=== PATIENT | male | born 1985 | race Caucasian/White ===

== ENCOUNTER 2018-01-18 15:23 | Observation (INO) ==
[2018-01-18] MEDS ORDERED: *HR* Belladonna Alkaloids/Opium 30 MG RECTAL SUPPOSITORY RC PRN (16:31)
[2018-01-18] MEDS ORDERED: Ondansetron 4 MG/2 ML VIAL IVP PRN (16:31)
[2018-01-18] MEDS ORDERED: Naloxone 0.4 MG/ML INJ IVP PRN (16:31)
[2018-01-18] MEDS ORDERED: *HR* Promethazine 25 MG/ML VIAL IVP PRN (16:31)
--- NOTE | 2018-01-18 16:47 | Urology History & Physical ---
Date of Encounter: 01/18/18 Time of Encounter: 16:43 Assessment and Plan (1) Ureteral stone with hydronephrosis Current Visit: Yes Status: Acute I reviewed the ct report. likely 2 mm UVJ stone. active severe pain and N/V. discussed trial of passage but pain control will not allow. admission. will attempt passage tonight with IVF and pain control. N/V control. strain urine. stone extraction tomorrow if no passage. History of Present Illness Chief complaint: right flank pain. N/V HPI: Mr. Hightower is a 33 year old male 2 ER visits for severe flank pain. 2 mm UVJ stone. feels "miserable" has been taking toradol q6h. family hx of stones. no personal hx of stones. Past Med Surg Social Fam HX - Past Medical History Medical history: kidney stones, other Psychiatric history: no psych history - Social History Smoking Status: Never smoker Smokeless Tobacco Status: Yes Alcohol use: occasionally Drug use: none Medications and Allergies Ketorolac [Toradol] 10 mg PO Q6HR #10 tablet 01/18/18 [Rx] Ondansetron ODT [Zofran ODT] 4 mg PO Q8HR PRN #10 tab.rapdis 01/18/18 [Rx] Paroxetine HCl [Paxil] 10 mg PO DAILY 01/18/18 [History] Tamsulosin [Flomax] 0.4 mg PO DAILY #7 cap.er.24h 01/18/18 [Rx] 3 Allergy/AdvReac Type Severity Reaction Status Date / Time acetaminophen [From Vicodin] Allergy Palpitation Verified 01/18/18 11:07 s hydrocodone [From Vicodin] Allergy Palpitation Verified 01/18/18 11:07 s naproxen [From Aleve] Allergy Palpitation Verified 01/18/18 11:07 s Oxycodone [From Percocet] Allergy Palpitation Verified 01/18/18 11:07 s Review of Systems - Constitutional no fatigue, no fever(s), no malaise - EENT Nose, mouth and throat: no dizziness - Cardiovascular no chest pain - Respiratory no cough - Gastrointestinal abdominal pain, nausea, vomiting - Genitourinary flank pain - Musculoskeletal back pain - Integumentary no erythema - Neurological no confusion - Psychiatric no anxiety Exam - General physical appearance Present: no distress, severe pain, other (actively vomiting) - Eyes Present: PERRL, conjunctiva is clear - ENT Present: normal nares, no hearing loss - Neck Present: no masses, no lymphadenopathy - Respiratory Present: normal respiratory effort - Cardiovascular Cardiovascular exam IM: RRR - Abdomen Abdomen: Present: soft, tender, suprapubic tenderness - Integumentary Present: no rash, no abnormal pigmentation - Neurologic Present: normal coordination. Absent: disoriented, confused - Musculoskeletal Present: normal gait Urology Results - Labs All other labs normal.
[2018-01-18 17:09] LABS: Basophils % 0.1 %; Hematocrit 40.9 % (37.5-50.1); Immature Granulocytes % 0.4 % (0-4); Lymphocytes # 0.8 K/mcL (0.6-4.6); Lymphocytes % 6.8 %; Mean Corpuscular HGB Conc 34.2 g/dL (31.6-35.5); Mean Corpuscular Hemoglobin 29.3 pg (28.0-33.3); Mean Corpuscular Volume 85.6 fL (83.0-100.0); Mean Platelet Volume 9.2 fL (9.4-12.4); Monocytes # 0.6 K/mcL (0.0-1.3); Monocytes % 4.9 %; Neutrophils # 9.8 K/mcL (1.6-8.9); Platelet Count 197 K/mcL (140-400); Red Blood Count 4.78 M/mcL (4.19-5.50); Red Cell Distribution Width 12.7 % (11.5-14.5); Segmented Neutrophils % 87.8 %
[2018-01-18 17:23] LABS: BUN/Creatinine Ratio 14 (6-26); Blood Urea Nitrogen 15 mg/dL (6-20); Calcium 8.9 mg/dL (8.6-10.3); Carbon Dioxide 25 mEq/L (23-29); Chloride 107 mEq/L (98-107); Glucose 106 mg/dL (70-105); Osmolality,Calculated 287 (280-300); Potassium 4.3 mEq/L (3.5-5.1); Sodium 138 mEq/L (136-145); eGFR For African Americans > 60 (> 60); eGFR For Non-African Americans > 60 (> 60)
[2018-01-18] MEDS: 0.9 % Sodium Chloride 1,000 ML IVC SCH (18:27)
[2018-01-18] MEDS: *HR* HYDROmorphone 2 MG TABLET PO PRN (20:30)
[2018-01-19] MEDS: Ketorolac 15 MG/ML VIAL IVP SCH ×4 (00:36→18:03)
[2018-01-19] MEDS: 0.9 % Sodium Chloride 1,000 ML IVC SCH ×2 (00:36→09:38)
[2018-01-19] MEDS: *HR* HYDROmorphone 2 MG TABLET PO PRN ×3 (03:05→18:06)
--- NOTE | 2018-01-19 07:34 | Urology Progress Note ---
Date of Encounter: 01/19/18 Time of Encounter: 07:32 - Assessment and Plan (1) Ureteral stone with hydronephrosis Current Visit: Yes Status: Acute Assessment and plan: 33-year-old man with a right distal ureteral stone. Plan for right ureteroscopy , laser lithotripsy, and stent placement. He was informed of the risks of the procedure including but not limited to bleeding, infection, injury to other structures, need for further procedures, stent irritation, incomplete fragmentation, ureteral perforation, need for nephrostomy tube, need for open repair, risks unforeseen, and the risk of anesthesia. He is willing to proceed. Progress Note Narrative: 33-year-old man with a history of right flank pain. He was admitted for a distal right ureteral stone. He is still having pain this morning. He wishes to proceed with surgery today. Objective Initial Vital Signs Temp Pulse Resp BP Pulse Ox 98.4 F 64 14 97/57 100 01/18/18 20:32 01/18/18 20:32 01/18/18 20:32 01/18/18 20:32 01/18/18 20:32 - General physical appearance Present: well developed, well nourished, moderate pain - Respiratory Present: normal expansion - Abdomen Present: soft - Labs 01/18/18 16:50 01/18/18 16:50 Diabetes panel 01/18/18 Range/Units 16:50 Sodium 138 (136-145) mEq/L Potassium 4.3 (3.5-5.1) mEq/L Chloride 107 (98-107) mEq/L Carbon Dioxide 25 (23-29) mEq/L BUN 15 (6-20) mg/dL Creatinine 1.05 (0.70-1.30) mg/dL Glucose 106 H (70-105) mg/dL Calcium 8.9 (8.6-10.3) mg/dL Calcium panel 01/18/18 Range/Units 16:50 Calcium 8.9 (8.6-10.3) mg/dL Pituitary panel 01/18/18 Range/Units 16:50 Sodium 138 (136-145) mEq/L Potassium 4.3 (3.5-5.1) mEq/L Chloride 107 (98-107) mEq/L Carbon Dioxide 25 (23-29) mEq/L BUN 15 (6-20) mg/dL Creatinine 1.05 (0.70-1.30) mg/dL Glucose 106 H (70-105) mg/dL Calcium 8.9 (8.6-10.3) mg/dL Adrenal panel 01/18/18 Range/Units 16:50 Sodium 138 (136-145) mEq/L Potassium 4.3 (3.5-5.1) mEq/L Chloride 107 (98-107) mEq/L Carbon Dioxide 25 (23-29) mEq/L BUN 15 (6-20) mg/dL Creatinine 1.05 (0.70-1.30) mg/dL Glucose 106 H (70-105) mg/dL Calcium 8.9 (8.6-10.3) mg/dL Consult Discharge Plan - Plan Referrals: Zulma Nayak CNP [Primary Care Provider] - Lucian Moulton MD [Partnered Physician] -
[2018-01-19] MEDS ORDERED: cefTRIAXone 1,000 MG in Water for inj. (sterile) 20 ML 10 ML IVP SCH (09:00)
[2018-01-19] MEDS ORDERED: Isovue-300 50 ML VIAL IVP ONE (16:47)
[2018-01-19] MEDS ORDERED: *HR* FentaNYL (PF) 100 MCG/2 ML VIAL ONE (16:50)
[2018-01-19] MEDS ORDERED: Dexamethasone 4 MG/ML VIAL ONE (16:50)
[2018-01-19] MEDS ORDERED: *HR* Propofol 200 MG/20 ML VIAL IVP ONE (16:50)
[2018-01-19] MEDS ORDERED: Ondansetron 4 MG/2 ML VIAL ONE (16:50)
[2018-01-19] MEDS ORDERED: Lidocaine -MPF 2% 2 ML VIAL ONE (16:50)
[2018-01-19] MEDS ORDERED: *HR* Midazolam HCl 2 MG/2 ML VIAL ONE (16:52)
--- NOTE | 2018-01-19 16:55 | Anesthesia Evaluation PreOp ---
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 HX Other Medical History: Renal (stones) Anesthesia History: No Prior Anesthetic Complications Alcohol Use: occasionally Drug use: none Medications and Allergies Ketorolac [Toradol] 10 mg PO Q6HR #10 tablet 01/18/18 [Rx] Ondansetron ODT [Zofran ODT] 4 mg PO Q8HR PRN #10 tab.rapdis 01/18/18 [Rx] Paroxetine HCl [Paxil] 10 mg PO DAILY 01/18/18 [History] Tamsulosin [Flomax] 0.4 mg PO DAILY #7 cap.er.24h 01/18/18 [Rx] 3 Allergy/AdvReac Type Severity Reaction Status Date / Time acetaminophen [From Vicodin] Allergy Palpitation Verified 01/18/18 11:07 s hydrocodone [From Vicodin] Allergy Palpitation Verified 01/18/18 11:07 s naproxen [From Aleve] Allergy Palpitation Verified 01/18/18 11:07 s Oxycodone [From Percocet] Allergy Palpitation Verified 01/18/18 11:07 s - Meds/Allergy Pre-op Review Medications Reviewed: Yes Allergies Reviewed: Yes Beta Blockers on Current Med List: No Anesthesia Results - Labs 01/18/18 16:50 01/18/18 16:50 Anesthesia Exam Last Vital Signs Temp 98.3 F 01/19/18 15:26 Pulse 83 01/19/18 15:26 Resp 16 01/19/18 15:26 BP 107/69 01/19/18 15:26 Pulse Ox 93 01/19/18 15:26 Weight: 61 kg NPO (# of Hours): >8 hrs - HEENT Pupil (Motor): Pupils equal, EOMI Mallampati: I Teeth: Normal Oral Opening: Greater than 3 - 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
[2018-01-19] MEDS ORDERED: *HR* Meperidine 25 MG/ML SYRINGE IVP PRN (17:17)
[2018-01-19] MEDS ORDERED: MORPHINE SUL Oral CONC 10 MG/0.5 ML ORAL.SYG SL PRN (17:17)
--- NOTE | 2018-01-19 17:43 | Urology Progress Note ---
Date of Encounter: 01/19/18 Time of Encounter: 17:41 - Assessment and Plan (1) Ureteral stone with hydronephrosis Current Visit: Yes Status: Acute Objective Initial Vital Signs Temp Pulse Resp BP Pulse Ox 98.4 F 64 14 97/57 100 01/18/18 20:32 01/18/18 20:32 01/18/18 20:32 01/18/18 20:32 01/18/18 20:32 - Labs 01/18/18 16:50 01/18/18 16:50 Consult Discharge Plan - Plan Referrals: Zulma Nayak CNP [Primary Care Provider] - Lucian Moulton MD [Partnered Physician] -
--- NOTE | 2018-01-19 17:49 | Operative Note ---
Date of procedure: 01/19/18 Pre-op diagnosis: Right ureteral stone Post-op diagnosis: same Procedure: Right ureteroscopy, laser lithotripsy, and stent placement. Implants: 6-Azerbaijani by 26 cm double-J stent Complications: None Anesthesia: GETA Surgeon: Lucian Moulton Was there an pediatric assistant present: No Estimated blood loss (cc): 1 Specimen: right ureteral stone Condition: stable Disposition: PACU Procedure in Detail: Indications: Mr. Hightower is a 33-year-old gentleman who has a history of right flank pain. A CT scan showed a 2 mm stone in the distal right ureter. He elected to undergo a right ureteroscopy, laser lithotripsy, and stent placement. He is aware of the risks of the procedure including but not limited to bleeding, infection, injury to other structures, need for further procedures, stent irritation, and the risk of anesthesia. He is willing to proceed. Procedure: After informed consent was obtained the patient was brought back to the operating room and placed in supine position. A time out was performed. General anesthesia was administered and an LMA was placed. He was then placed in the lithotomy position. He was prepped and draped in the usual sterile fashion. Cystoscopy was performed. The anterior urethra was normal. There was no evidence of bladder tumors. The ureteral orifices were in the normal orthotopic position. The Zip wire was placed in the right ureteral orifice and brought into the kidney under fluoroscopic guidance. The ureter was gently dilated with the 8/10 Azerbaijani ureteral dilator. I then advanced the semirigid ureteroscope into the ureter. The stone was grasped with a basket and removed intact. A 6 [place]ijani by 26cm JJ stent was then placed with good curl seen in the kidney and the bladder. The dangle string was left intact. The bladder was drained. The string was adhered to the penis using a Tegaderm. The patient was then awakened from general anesthesia and brought to recovery room in good condition. All sponge, needle, and instrument counts were correct.
--- NOTE | 2018-01-19 17:55 | Discharge Summary ---
Orders not resulted at time of discharge: Pending orders 01/19/18 17:07 XR KUB [XR] Routine XR fluoroscopy <1 hr [XR] Routine 01/19/18 17:28 Surgical Pathology [PTH] Routine Date of Encounter: 01/20/18 Time of Encounter: 17:53 - Discharge Diagnosis (1) Ureteral stone with hydronephrosis Priority: Primary Status: Acute - Hospital Course Hospital course: Mr. Hightower is a 33 year old male who presents with a history of right flank pain. He was admitted on 01/18/2018. On January 19 2018 he underwent a right ureteroscopy with basket stone extraction and stent placement. He did well after the surgery and was discharged home. - Time Spent with Patient Total time spent providing and/or coordinating discharge services: Less than 30 minutes - Impressions ITS Impressions KUB X-Ray 01/19/18 07:34 IMPRESSION: No evidence of urolithiasis. D/ / Uriel Combs MD / Uriel Combs MD Interpreting Provider: Uriel Combs MD - Discharge Medications Prescriptions: HYDROmorphone [Dilaudid] 2 mg PO Q4HR PRN 5 Days #20 tablet PRN Reason: Pain Docusate [Colace] 100 mg PO BID #60 capsule Phenazopyridine HCl [Pyridium] 200 mg PO TIDAC #14 tab Home Medications: Ketorolac [Toradol] 10 mg PO Q6HR #10 tablet 01/18/18 [Rx] Ondansetron ODT [Zofran ODT] 4 mg PO Q8HR PRN #10 tab.rapdis 01/18/18 [Rx] Paroxetine HCl [Paxil] 10 mg PO DAILY 01/18/18 [History] Tamsulosin [Flomax] 0.4 mg PO DAILY #7 cap.er.24h 01/18/18 [Rx] Docusate [Colace] 100 mg PO BID #60 capsule 01/19/18 [Rx] HYDROmorphone [Dilaudid] 2 mg PO Q4HR PRN 5 Days #20 tablet 01/19/18 [Rx] Phenazopyridine HCl [Pyridium] 200 mg PO TIDAC #14 tab 01/19/18 [Rx] Allergies/Adverse Reactions: 3 Allergy/AdvReac Type Severity Reaction Status Date / Time acetaminophen [From Vicodin] Allergy Palpitation Verified 01/18/18 11:07 s hydrocodone [From Vicodin] Allergy Palpitation Verified 01/18/18 11:07 s naproxen [From Aleve] Allergy Palpitation Verified 01/18/18 11:07 s Oxycodone [From Percocet] Allergy Palpitation Verified 01/18/18 11:07 s Date of admission: 01/18/18 15:31 Primary care physician: Zulma Nayak CNP Discharging clinician: Lucian Moulton Anticipated date of discharge: 01/19/18 Exam Initial Vital Signs Temp Pulse Resp BP Pulse Ox 98.4 F 64 14 97/57 100 01/18/18 20:32 01/18/18 20:32 01/18/18 20:32 01/18/18 20:32 01/18/18 20:32 - General physical appearance Present: well developed, well nourished, no distress - Eyes Absent: icteric - ENT Present: normal nares - Neck Present: trachea midline - Respiratory Present: normal respiratory effort - Cardiovascular Cardiovascular exam IM: RRR - Abdomen Abdomen: Present: soft - Patient Status Disposition: Home, Self-Care Condition: Good Functional capacity at discharge: independent ambulation Overall status at discharge: patient is progressing back to baseline - Discharge Instructions Instructions: Ureteroscopy (DC) Follow Up With: Zulam Nayak CNP [Primary Care Provider] - Lucian Moulton MD [Partnered Physician] - (In 4 weeks for a checkup.) Additional Instructions: 1. The patient can remove stent in 5 days by pulling on the string. 2. He should expect to feel flank pain with voiding. 3. The patient should call for any fevers, chills, nausea, emesis, or uncontrolled pain. 4. Please provide a work excuse if necessary for up to 1 week off. - Diet and Activity Activity: increase activity as tolerated Diet: advance to your usual diet
--- NOTE | 2018-01-19 18:16 | Anesthesia Evaluation Post Op ---
Date of Encounter: 01/19/18 Time of Encounter: 18:15 - Vital Signs Vital Signs: Last Vital Signs Temp 98.6 F 01/19/18 17:33 Pulse 61 01/19/18 18:03 Resp 14 01/19/18 18:03 BP 107/80 01/19/18 17:53 Pulse Ox 97 01/19/18 18:03 - Lungs Lungs: Clear Ascult./Percussion - Airway Airway: Non-obstructed - Cardiovascular Regular Rate - Mental Status Mental Status: Alert & Oriented, Answers Appropriately - Pain Pain Scale: 4 - Nausea Vomiting Nausea Vomiting: Not Present - Hydration Hydration: NPO - Discharge PostOp Status: Transfer Patient to floor
[2018-01-19] MEDS ORDERED: Ondansetron 4 MG/2 ML VIAL IVP PRN (18:40)
[2018-01-19] MEDS ORDERED: *HR* HYDROmorphone 2 MG TABLET PO PRN (18:40)
[2018-01-19] MEDS ORDERED: *HR* Belladonna Alkaloids/Opium 30 MG RECTAL SUPPOSITORY RC PRN (18:40)
[2018-01-19] MEDS ORDERED: Naloxone 0.4 MG/ML INJ IVP PRN (18:40)
[2018-01-19] MEDS ORDERED: 0.9 % Sodium Chloride 1,000 ML IVC SCH (18:40)
[2018-01-19] MEDS ORDERED: *HR* Promethazine 25 MG/ML VIAL IVP PRN (18:40)
[2018-01-19 20:04] VITALS: BP 105/68
[2018-01-20] MEDS ORDERED: Ketorolac 15 MG/ML VIAL IVP SCH
[2018-01-20] MEDS ORDERED: cefTRIAXone 1,000 MG in Water for inj. (sterile) 20 ML 10 ML IVP SCH (09:00)
== END 2018-01-19 20:05 | disposition home or self-care (01) ==
LOC: 3ANU
PROVIDERS: ADMIT Urology; ATTEND Urology